=== PATIENT | female | born 1980 | race American Indian/Alaskan Native ===

== ENCOUNTER 2019-07-31 22:25 | Emergency (ER) | payer SELFPAY ==
[2019-08-01] MEDS ORDERED: LET TOPICAL (LIDOCAINE/EPINEPHRINE/TETRACAINE) 3 ML TP ONE (04:08)
[2019-08-01] MEDS ORDERED: LIDOCAINE-MPF (1%) 10 MG/1 ML VIAL 5 ML INFILTRATI ONE (04:08)
[2019-08-01] MEDS ORDERED: ACETAMINOPHEN 500 MG TAB PO ONE (04:08)
[2019-08-01] MEDS ORDERED: IBUPROFEN 600 MG TAB PO ONE (04:08)
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
[2019-08-01 06:05] VITALS: BP 140/92
== END 2019-08-01 06:05 | disposition home or self-care (01) ==
LOC: ED 22:25
DX: S01.511A Laceration without foreign body of lip, initial encounter (principal); S02.2XXA Fracture of nasal bones, initial encounter for closed fracture; S00.83XA Contusion of other part of head, initial encounter; Z90.710 Acquired absence of both cervix and uterus; Z98.890 Other specified postprocedural states; Y04.2XXA Assault by strike against or bumped into by another person, initial encounter; Y93.89 Activity, other specified; Y92.89 Other specified places as the place of occurrence of the external cause; Y99.8 Other external cause status
CPT/HCPCS: 70450; 70486; 72125

== ENCOUNTER 2020-01-18 09:18 | Emergency (ER) | payer SELFPAY ==
[2020-01-18 10:49] LABS: HCG Qualitative,Urine Negative (Negative)
[2020-01-18 10:50] LABS: Bilirubin,Urine NEG (Negative); Blood,Urine LG (Negative); Color,Urine Yellow (Yellow); Mucus,Urine 2+ /HPF; Urobilinogen,Urine < 2.0 mg/dL (<2.0)
[2020-01-18 10:51] LABS: RBC,Urine > 182.0 /HPF (0.0-6.0); WBC,Urine > 182.0 /HPF (0.0-6.0)
[2020-01-18] MEDS ORDERED: LIDOCAINE-MPF (1%) 10 MG/1 ML VIAL 5 ML INFILTRATI ONE (13:07)
[2020-01-18] MEDS ORDERED: HYDROcodone/ACETAMINOPHEN 5-325 MG TAB PO ONE (13:07)
--- NOTE | 2020-01-18 13:24 | Emergency Department Report ---
ED Female HPI - General Chief complaint: Abdominal Pain Stated complaint: PELVIC PAIN Time Seen by Provider: 01/18/20 13:07 Source: patient Mode of arrival: Ambulatory Limitations: No Limitations - History of Present Illness Initial comments: Patient is a 39-year-old female presents emergency room with complaints of dysuria that began 2 days ago. She has associated suprapubic abdominal pressure, urinary frequency with only small outputs, hematuria. She denies any back pain, fever, nausea, vomiting, diarrhea, vaginal discharge or irritation. She denies any past medical history. She denies any allergies. - Related Data Previous Rx's Medication Instructions Recorded Last Taken Type Acetaminophen/Codeine [Tylenol 1 tab PO Q6H PRN #12 tab 08/01/19 Unknown Rx /Codeine # 3 tab] Amoxicillin/Potassium Clav 1 each PO Q12H #20 tablet 08/01/19 Unknown Rx [Augmentin 875-125 Tablet] Cyclobenzaprine [Flexeril] 10 mg PO Q8H PRN #21 tablet 08/01/19 Unknown Rx Ibuprofen [Motrin] 600 mg PO Q8H PRN #24 tablet 08/01/19 Unknown Rx Acetaminophen/Codeine [Tylenol 1 tab PO Q6H PRN #7 tab 01/18/20 Unknown Rx /Codeine # 3 tab] Ondansetron [Zofran Odt] 4 mg PO Q8HR PRN #10 tab.rapdis 01/18/20 Unknown Rx Phenazopyridine [Pyridium] 100 mg PO TID PRN #10 tab 01/18/20 Unknown Rx amLODIPine 10 mg PO DAILY #30 tab 01/18/20 Unknown Rx cephALEXin [Keflex] 500 mg PO BID 10 Days #20 cap 01/18/20 Unknown Rx Allergies Allergy/AdvReac Type Severity Reaction Status Date / Time No Known Allergies Allergy Unverified 07/31/19 23:42 ED Review of Systems ROS: Stated complaint: PELVIC PAIN Other details as noted in HPI Comment: All other systems reviewed and negative ED Past Medical Hx - Surgical History Additional Surgical History: X 3. Hysterectomy - Social History Smoking Status: Never Smoker Substance Use Type: None - Medications Home Medications: Home Medications Medication Instructions Recorded Confirmed Last Taken Type Acetaminophen/Codeine [Tylenol 1 tab PO Q6H PRN #12 tab 08/01/19 Unknown Rx /Codeine # 3 tab] Amoxicillin/Potassium Clav 1 each PO Q12H #20 tablet 08/01/19 Unknown Rx [Augmentin 875-125 Tablet] Cyclobenzaprine [Flexeril] 10 mg PO Q8H PRN #21 tablet 08/01/19 Unknown Rx Ibuprofen [Motrin] 600 mg PO Q8H PRN #24 tablet 08/01/19 Unknown Rx Acetaminophen/Codeine [Tylenol 1 tab PO Q6H PRN #7 tab 01/18/20 Unknown Rx /Codeine # 3 tab] Ondansetron [Zofran Odt] 4 mg PO Q8HR PRN #10 tab.rapdis 01/18/20 Unknown Rx Phenazopyridine [Pyridium] 100 mg PO TID PRN #10 tab 01/18/20 Unknown Rx amLODIPine 10 mg PO DAILY #30 tab 01/18/20 Unknown Rx cephALEXin [Keflex] 500 mg PO BID 10 Days #20 cap 01/18/20 Unknown Rx ED Physical Exam - General Limitations: No Limitations General appearance: alert, in no apparent distress - Head Head exam: Present: atraumatic, normocephalic - Eye Eye exam: Present: normal appearance - ENT ENT exam: Present: mucous membranes moist - Respiratory Respiratory exam: Present: normal lung sounds bilaterally. Absent: respiratory distress, wheezes, rales, rhonchi, stridor, chest wall tenderness, accessory muscle use, decreased breath sounds, prolonged expiratory - Cardiovascular Cardiovascular Exam: Present: regular rate, normal rhythm, normal heart sounds. Absent: systolic murmur, diastolic murmur, rubs, gallop - GI/Abdominal GI/Abdominal exam: Present: soft, normal bowel sounds. Absent: distended, tenderness, guarding, rebound, rigid - Back Exam Back exam: Absent: CVA tenderness (R), CVA tenderness (L) - Neurological Exam Neurological exam: Present: alert, oriented X3 - Psychiatric Psychiatric exam: Present: normal affect, normal mood - Skin Skin exam: Present: warm, dry, intact ED Course Vital Signs 01/18/20 01/18/20 01/18/20 09:42 13:26 14:17 Temperature 98.2 F 97.9 F Pulse Rate 86 78 91 H Respiratory 20 18 Rate Blood Pressure 181/128 191/133 191/128 Blood Pressure [Left] O2 Sat by Pulse 99 100 Oximetry 01/18/20 01/18/20 15:11 15:58 Temperature 98.1 F Pulse Rate 74 79 Respiratory 18 18 Rate Blood Pressure 185/119 Blood Pressure 196/135 [Left] O2 Sat by Pulse 96 99 Oximetry ED Medical Decision Making - Lab Data Lab Results 01/18/20 Range/Units 09:55 Urine Color Yellow (Yellow) Urine Turbidity Cloudy (Clear) Urine pH 5.0 (5.0-7.0) Ur Specific [place] 1.029 (1.003-1.030) Urine Protein 100 mg/dl (Negative) mg/dL Urine Glucose (UA) Neg (Negative) mg/dL Urine Ketones Neg (Negative) mg/dL Urine Blood Lg (Negative) Urine Nitrite Neg (Negative) Ur Reducing Substances Not Reportable Urine Bilirubin Neg (Negative) Urine Ictotest Not Reportable Urine Urobilinogen < 2.0 (<2.0) mg/dL Ur Leukocyte Esterase Lg (Negative) Urine WBC (Auto) > 182.0 H (0.0-6.0) /HPF Urine RBC (Auto) > 182.0 (0.0-6.0) /HPF U Epithel Cells (Auto) 14.0 H (0-13.0) /HPF Urine Mucus 2+ /HPF Urine HCG, Qual Negative (Negative) Vital Signs 01/18/20 01/18/20 01/18/20 09:42 13:26 14:17 Temperature 98.2 F 97.9 F Pulse Rate 86 78 91 H Respiratory 20 18 Rate Blood Pressure 181/128 191/133 191/128 Blood Pressure [Left] O2 Sat by Pulse 99 100 Oximetry 01/18/20 01/18/20 15:11 15:58 Temperature 98.1 F Pulse Rate 74 79 Respiratory 18 18 Rate Blood Pressure 185/119 Blood Pressure 196/135 [Left] O2 Sat by Pulse 96 99 Oximetry - Medical Decision Making Patient is a 39-year-old female presents emergency room with complaints of dysuria that began 2 days ago. She has associated suprapubic abdominal pressure, urinary frequency with only small outputs, hematuria. She denies any back pain, fever, nausea, vomiting, diarrhea, vaginal discharge or irritation. She denies any past medical history. She denies any allergies. Vitals with significantly elevated blood pressure. Patient states over the last couple weeks she has been having headaches, most likely related to her elevated blood pressure. She denies any headache currently. Otherwise vitals are normal. Patient given amlodipine and hydralazine and blood pressure slightly improved, she is currently asymptomatic and ready to go home, she denies any chest pain, shortness of breath, headache, vision changes, numbness, weakness. UA shows evidence of significant UTI with many red blood cells, many white blood cells, leukocyte [place]. Urine is negative. Patient given 1 g of ceftriaxone while in the ED and [place] with improvement of her symptoms. No abdominal tenderness on exam, no guarding, no rebound, no rigidity, normal bowel sounds, no CVA tenderness bilaterally. Patient will be started on amlodipine for her blood pressure, discussed the risk associated with long-term uncontrolled hypertension, discussed the importance of diet and exercise, discussed the importance of primary care close follow-up. Patient also given prescription for Zofran, Keflex, Pyridium, Tylenol with codeine. Discussed with patient that Pyridium may turn her urine orange. Advised patient Please take medication as prescribed. Please take antibiotics with food. Increase your water intake over the next several days. Follow-up with a primary care doctor and have your urine retested for clearance of bacteria. Return to the emergency room immediately for any new or worsening symptoms including but not limited to worsening abdominal pain, back pain, high fever, unable to tolerate by mouth intake, etc. Please increase your water intake. Please keep a blood pressure log and take your blood pressure log. eat a low sodium diet. incorporate 30-60 minutes of daily exercise. Critical care attestation.: If time is entered above; I have spent that time in minutes in the direct care of this critically ill patient, excluding procedure time. ED Disposition Clinical Impression: Hypertensive urgency UTI (urinary tract infection) Qualifiers: Urinary tract infection type: acute cystitis Hematuria presence: with hematuria Qualified Code(s): N30.01 - Acute cystitis with hematuria Disposition: TO HOME OR SELFCARE Is pt being admited?: No Does the pt Need Aspirin: No Condition: Stable Instructions: Urinary Tract Infection in Women (ED), Hypertension (ED) Additional Instructions: Please take medication as prescribed. Please take antibiotics with food. Increase your water intake over the next several days. Follow-up with a primary care doctor and have your urine retested for clearance of bacteria. Return to the emergency room immediately for any new or worsening symptoms including but not limited to worsening abdominal pain, back pain, high fever, unable to tolerate by mouth intake, etc. Please increase your water intake. Please keep a blood pressure log and take your blood pressure log. eat a low sodium diet. incorporate 30-60 minutes of daily exercise. Prescriptions: amLODIPine 10 mg PO DAILY #30 tab cephALEXin [Keflex] 500 mg PO BID 10 Days #20 cap Phenazopyridine [Pyridium] 100 mg PO TID PRN #10 tab PRN Reason: dysuria Acetaminophen/Codeine [Tylenol /Codeine # 3 tab] 1 tab PO Q6H PRN #7 tab PRN Reason: Pain , Severe (7-10) Ondansetron [Zofran Odt] 4 mg PO Q8HR PRN #10 tab.rapdis PRN Reason: Nausea And Vomiting Referrals: CHRISTINE NASH MD [Staff Physician] - 2-3 Days [facility] [Provider Group] - 2-3 Days [facility] [Outside] - 2-3 Days Time of Disposition: 16:01 Print Language: FILIPINO
[2020-01-18] MEDS ORDERED: amLODIPine 5 MG TAB PO ONE (13:33)
[2020-01-18] MEDS ORDERED: hydrALAZINE 25 MG TAB PO ONE (15:12)
[2020-01-18 16:27] VITALS: BP 185/119
== END 2020-01-18 16:27 | disposition home or self-care (01) ==
LOC: ED 09:18
DX: I16.0 Hypertensive urgency (principal); N39.0 Urinary tract infection, site not specified; Z79.899 Other long term (current) drug therapy; Z90.710 Acquired absence of both cervix and uterus; Z98.890 Other specified postprocedural states
CPT/HCPCS: 81001; 81025; 87086; 96372; 99283; J0696